=== PATIENT | female | born 1995 | race Caucasian/White ===

== ENCOUNTER 2016-04-01 06:52 | Inpatient (IN) | payer MEDICAID ==
[~2016-04-01] VITALS: Ht 50.8 cm; Wt 3.5 kg
[2016-04-01] MEDS ORDERED: LACTATED RINGER'S 1,000 ML IV SCH ×2 (07:11→07:23)
[2016-04-01 07:27] VITALS: BMI 25.6
[2016-04-01 07:28] VITALS: BP 98/56; RESP 16
[2016-04-01] MEDS ORDERED: PREN1TAB79 PO (07:29)
[2016-04-01] MEDS ORDERED: OXYTOCIN 30 UNITS/LR 500 ML IV PRN ×3 (07:30→12:30)
[2016-04-01] MEDS ORDERED: BUTORPHANOL 2 MG INJ IV PRN ×2 (07:30)
[2016-04-01] MEDS ORDERED: AMPICILLIN 2 GM/NS (PMX) 100 ML IV ONE (07:30)
[2016-04-01] MEDS ORDERED: MISOPROSTOL 200 MCG TAB PR PRN ×3 (07:30→12:30)
[2016-04-01] MEDS ORDERED: METHYLERGONOVINE 0.2 MG INJ IM PRN ×3 (07:30→12:30)
[2016-04-01] MEDS ORDERED: CARBOPROST 250 MCG INJ IM PRN ×3 (07:30→12:30)
[2016-04-01] MEDS ORDERED: LIDOCAINE 1% (MPF) 30 ML INJ INJ PRN ×2 (07:30)
[2016-04-01] MEDS ORDERED: IRON1TAB78 PO (07:30)
[2016-04-01] MEDS ORDERED: OXYTOCIN 30 UNITS/LR 500 ML IV SCH ×4 (07:30)
[2016-04-01 07:50] LABS: BASOPHIL # 0.1 10^3/ul (0.0-0.1); EOSINOPHILS % 0.2 % (0.0-7.0); HEMATOCRIT 38.3 % (37.0-47.0); HEMOGLOBIN 13.2 g/dl (12.0-16.0); LYMPHOCYTES # 1.5 10^3/ul (0.8-2.9); LYMPHOCYTES % 27.3 % (15.0-51.0); MEAN CORPUSCULAR HEMOGLOBIN 30.8 pg (29.0-33.0); MEAN CORPUSCULAR HGB CONC 34.6 g/dl (32.0-37.0); MEAN CORPUSCULAR VOLUME 89.2 fl (82.0-101.0); MEAN PLATELET VOLUME 9.9 fl (7.4-10.4); MONOCYTE # 0.5 10^3/ul (0.3-0.9); MONOCYTES % 8.4 % (0.0-11.0); NEUTROPHIL # 3.4 10^3/ul (1.6-7.5); NEUTROPHILS % 62.1 % (39.0-77.0); PLATELET COUNT 178 10^3/UL (140-440); RED BLOOD COUNT 4.29 10^6/ul (4.20-5.40); RED CELL DISTRIBUTION WIDTH 14.4 % (11.5-14.5); UNCORRECTED WBC 5.5 10^3/ul (4.8-10.8); WHITE BLOOD COUNT 5.5 10^3/ul (4.8-10.8)
[2016-04-01 07:53] LABS: CONDITION 1
[2016-04-01 08:00] LABS: INR 0.87; PARTIAL THROMBOPLASTIN TIME 26.9 Sec (25.0-35.0); PROTIME 11.8 Sec (12.2-14.2); PT RATIO 0.9
[2016-04-01] MEDS ORDERED: AMPICILLIN 1 GM/NS (PMX) 50 ML IV SCH (11:30)
[2016-04-01 11:46] VITALS: Ht 50.8 cm; Wt 3.5 kg
[2016-04-01] MEDS ORDERED: ERYTHROMYCIN 1 GM OPH OINT BOTH EYES ONE (12:00)
[2016-04-01] MEDS ORDERED: PHYTONADIONE 1 MG/0.5 ML SYG IM ONE (12:00)
--- NOTE | 2016-04-01 12:03 | LDN ---
Date/Time of Note Date/Time of Note DATE: 04/01/16 TIME: 11:57 Delivery Summary Placenta Delivered: Spontaneously Meconium: none Perineum intact?: Yes Perineal laceration repair: 1st degree vaginal laceration repair with 2-0 chromic Anesthesia type: Local Sponge & Needle done & correct: Yes All needle counts correct: Yes Any foreign bodies felt in the: No Problems: Infant Delivery Information Sex Sex: female Apgars 1 Minute: 9 5 Minute: 9 Suctioning Nose & mouth suctioned at [place]: No Umbilical Cord Umbilical cord with: 3 Vessels Cord presentations: no nuchal cord Cord Blood was obtained: Yes TAYLOR HAWKINS MD Apr 01, 2016 12:03
[2016-04-01] MEDS: LACTATED RINGER'S 1,000 ML IV* SCH ×2 (12:04→16:41)
--- NOTE | 2016-04-01 12:08 | PREOPHP ---
DATE OF ADMISSION: 04/01/2016 HISTORY OF PRESENT ILLNESS: The patient is a 20-year-old 2, para 1, intrauterine at term, was admitted for labor. She reports mel regularly since last night. She denies any vaginal bleeding or discharge. Her care took place at [facility]. MEDICATIONS: vitamins. PAST SURGICAL HISTORY: None. OBSTETRICAL HISTORY: x1 vaginal delivery. GYNECOLOGIC HISTORY: Age 10, regular 3 to 4 days. Denies any sexually transmitted diseases. Sexua lly active with 1 partner. SOCIAL HISTORY: Denies any smoking, drugs or alcohol. FAMILY HISTORY: None. PHYSICAL EXAMINATION: HEENT: Within normal. LUNGS: CTA bilateral. CARDIOVASCULAR: S1, S2, regular rhythm. ABDOMEN: Gravid, nontender. Negative CVA bilateral. EXTREMITIES: Negative edema. No calf tenderness. PELVIC: Vaginal exam on admission, 5 cm dilated, 80% effaced, -2 station, intact. heart trac ing category 1, toco regular contractions. ASSESSMENT: Intrauterine at term in labor. PLAN: Expectant management. Dictated By: TAYLOR BOSWELL/KAROL Conf#: [id number] DID#: [id number]
[2016-04-01] MEDS ORDERED: DIPHENHYDRAMINE 25 MG CAP PO PRN (12:30)
[2016-04-01] MEDS ORDERED: SENNA/DOCUSATE NA (8.6MG/50MG) TAB PO PRN (12:30)
[2016-04-01] MEDS ORDERED: ONDANSETRON 4 MG INJ IV PRN (12:30)
[2016-04-01] MEDS ORDERED: OXYCODONE/ASPIRIN (4.88/325) TAB PO PRN (12:30)
[2016-04-01 13:45] VITALS: BP 109/57; PULSE 76; RESP 16
[2016-04-01] MEDS: WITCH HAZEL/GLYCERIN PAD PR PRN (14:16)
[2016-04-01] MEDS: LANOLIN 7 GM TUBE TOP PRN (14:17)
[2016-04-01] MEDS: OXYCODONE/ASPIRIN (4.88/325) TAB PO PRN (14:49)
[2016-04-01 16:00] VITALS: BP 110/58; PULSE 72; RESP 16
[2016-04-01] MEDS: IBUPROFEN 600 MG TAB PO SCH (17:24)
[2016-04-01 19:50] VITALS: BP 115/63; PULSE 90
[2016-04-01] MEDS: SENNA/DOCUSATE NA (8.6MG/50MG) TAB PO SCH (20:56)
[2016-04-02] MEDS: IBUPROFEN 600 MG TAB PO SCH ×5 (00:32→23:51)
[2016-04-02] MEDS: LACTATED RINGER'S 1,000 ML IV* SCH ×3 (03:56→20:04)
[2016-04-02 04:00] VITALS: BP 105/62; PULSE 72; RESP 18
[2016-04-02 08:30] VITALS: BP 96/57; PULSE 88; RESP 18
[2016-04-02 08:38] LABS: BASOPHIL # 0.1 10^3/ul (0.0-0.1); BASOPHILS % 1.5 % (0.0-2.0); EOSINOPHILS % 0.1 % (0.0-7.0); HEMATOCRIT 34.1 % (37.0-47.0); HEMOGLOBIN 11.9 g/dl (12.0-16.0); LYMPHOCYTES # 1.2 10^3/ul (0.8-2.9); MEAN CORPUSCULAR HEMOGLOBIN 31.2 pg (29.0-33.0); MEAN CORPUSCULAR HGB CONC 34.9 g/dl (32.0-37.0); MEAN CORPUSCULAR VOLUME 89.6 fl (82.0-101.0); MEAN PLATELET VOLUME 9.4 fl (7.4-10.4); MONOCYTE # 0.5 10^3/ul (0.3-0.9); MONOCYTES % 8.6 % (0.0-11.0); NEUTROPHILS % 68.8 % (39.0-77.0); PLATELET COUNT 153 10^3/UL (140-440); RED BLOOD COUNT 3.81 10^6/ul (4.20-5.40); RED CELL DISTRIBUTION WIDTH 14.5 % (11.5-14.5); UNCORRECTED WBC 5.8 10^3/ul (4.8-10.8); WHITE BLOOD COUNT 5.8 10^3/ul (4.8-10.8)
[2016-04-02 08:41] LABS: CONDITION 1; LH ANALYZER COMMENTS 1
[2016-04-02] MEDS: SENNA/DOCUSATE NA (8.6MG/50MG) TAB PO SCH ×2 (09:35→20:36)
[2016-04-02] MEDS ORDERED: HEPATITIS B VACCINE 5 MCG (VFC) VIAL IM* ONE (12:00)
[2016-04-02] MEDS ORDERED: INFLUENZA VIRUS VACCINE 0.5 ML SYG IM* ONE (17:00)
[2016-04-02 19:50] VITALS: BP 116/73; PULSE 79; RESP 20
[2016-04-02] MEDS: OXYCODONE/ASPIRIN (4.88/325) TAB PO PRN (19:50)
--- NOTE | 2016-04-02 20:09 | QN ---
Documentation Comment patient seen and evaluated no complaints positive ambulation, tolerating diet, postive bowel movement vs stable,afebrile ab soft nt, uterine fundus firm below umbillicus extrem no edema no calf tenderss a/ s/p vaginal delivery ppd 1 stable p/ dc home tomorrow f/u office in 3 weeks TAYLOR HAWKINS MD Apr 02, 2016 20:09
--- NOTE | 2016-04-02 20:10 | PD.PPDC ---
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
--- NOTE | 2016-04-02 21:10 | DS ---
DATE OF ADMISSION: 04/01/2016 DATE OF DISCHARGE: 04/03/2016 PRIMARY DIAGNOSIS: A 20-year-old 2, para 1, intrauterine at term in labor. PROCEDURE: Normal spontaneous vaginal delivery. CONDITION ON DISCHARGE: Stable. ACTIVITY: None per vaginal, no heavy lifting x6 weeks. DIET: Regular. MEDICATIONS ON DISCHARGE: Motrin. DISCHARGE SUMMARY: Ms. Jessie Medrano is a 20-year-old 2, para 2, status post normal spontane ous vaginal delivery on 04/01/2016. She had a viable fetus, 9 and 9 respectively at 1 and 5 m inutes. She had an uneventful day 1. She will be discharged on day 2, she is ambulating, tolerating diet, positive flatulence, positive bowel movement. She will follow up in t he office in 3 weeks for , status postop care. Dictated By: TAYLOR BOSWELL/KAROL Conf#: [id number] DID#: [id number]
[2016-04-03] MEDS: LACTATED RINGER'S 1,000 ML IV* SCH (04:04)
[2016-04-03 04:45] VITALS: BP 96/68; PULSE 83; RESP 18
[2016-04-03] MEDS: IBUPROFEN 600 MG TAB PO SCH ×2 (05:50→11:40)
[2016-04-03 08:15] VITALS: BP 93/62; PULSE 89; RESP 18
[2016-04-03] MEDS: SENNA/DOCUSATE NA (8.6MG/50MG) TAB PO SCH (09:00)
[2016-04-03] MEDS: LANOLIN 7 GM TUBE TOP PRN (11:40)
[2016-04-03] MEDS: WITCH HAZEL/GLYCERIN PAD PR PRN (11:40)
[2016-04-03 16:35] VITALS: BP 99/63; PULSE 89; RESP 18
== END 2016-04-03 18:17 | disposition home or self-care (01) | DRG 775 ==
LOC: OBT 06:52 → L-D 06:53 → OBT 07:17 → L-D 07:19 → PP1 13:46
PROVIDERS: ADMIT Obstetrics & Gynecology; ATTEND Obstetrics & Gynecology
PROC: 10E0XZZ Delivery of Products of Conception, External Approach (ICD-10-PCS; principal; 2016-04-01)
PROC: 0HQ9XZZ Repair Perineum Skin, External Approach (ICD-10-PCS; 2016-04-01)
DX: O71.4 Obstetric high vaginal laceration alone (principal); Z37.0 Single live birth; Z3A.40 40 weeks gestation of pregnancy
CPT/HCPCS: 85025; 85610; 85730; 86592; 86900; 86901; 87340; 90686; G0463; J0290; J2590; J7120